=== PATIENT | male | born 1995 | race Caucasian/White ===

== ENCOUNTER 2017-05-11 15:11 | Emergency (ER) | payer OTHER ==
[2017-05-11 15:54] VITALS: BP 109/46
--- NOTE | 2017-05-11 17:18 | UC ---
Complaint Male HPI - HPI Summary HPI Summary: Patient presents to the with request for STD testing. He denies any symptoms. Notes to unprotected exposure x 1 partner with unknown status. He denies any hx of STI's or symptoms or such. Denies fevers, sweats or chills. Otherwise healthy and takes no medications. Denies urinary symptoms. - History of Current Complaint Chief Complaint: UCGU Stated Complaint: STD TESTING Time Seen by Provider: 05/11/17 16:15 Hx Obtained From: Patient Timing: Constant Severity Currently: None Pain Intensity: 0 Pain Scale Used: 0-10 Numeric Associated Signs And Symptoms: Positive: Negative - Risk Factors Testicular Torsion: Negative - Allergies/Home Medications Allergies/Adverse Reactions: Allergies Allergy/AdvReac Type Severity Reaction Status Date / Time No Known Allergies Allergy Verified 05/11/17 15:53 Home Medications: Home Medications NK [No Home Medications Reported] 05/11/17 [History Confirmed 05/11/17] PMH/Surg Hx/FS Hx/Imm Hx Previously Healthy: Yes - Surgical History Surgical History: None - Social History Occupation: Employed Part-time Lives: Dormitory/Roommates Alcohol Use: Occasionally Substance Use Type: None Smoking Status (MU): Never Smoked Tobacco Review of Systems Constitutional: Negative Skin: Negative Respiratory: Negative Cardiovascular: Negative Genitourinary: Negative Motor: Negative Neurovascular: Negative Psychological: Negative Is Patient Immunocompromised?: No All Other Systems Reviewed And Are Negative: Yes Physical Exam Triage Information Reviewed: Yes Appearance: Well-Appearing, Well-Nourished Vital Signs: Initial Vital Signs Temp 98.2 F 05/11/17 15:50 Pulse 70 05/11/17 15:50 Resp 16 05/11/17 15:50 BP 109/46 05/11/17 15:50 Pulse Ox 100 05/11/17 15:50 Vital Signs Reviewed: Yes Eye Exam: Normal Eyes: Positive: Conjunctiva Clear Neck exam: Normal Neck: Positive: Supple, No Lymphadenopathy Respiratory: Positive: Chest non-tender, Lungs clear Musculoskeletal Exam: Normal Musculoskeletal: Positive: Strength Intact Neurological Exam: Normal Neurological: Positive: Alert Psychological: Positive: Age Appropriate Behavior Skin Exam: Normal Complaint Male Course/Dx - Course Course Of Treatment: Patient evaluated for possible STI. Lab work obtained and UA obtained with GC/Chlmydia. Denies any symptoms. Treatment options explained and patient would like to await the results of the testing prior to treatment. - Differential Dx/Diagnosis Differential Diagnosis/HQI/PQRI: Other - STI/ herpes Provider Diagnoses: STD testing Discharge - Discharge Plan Condition: Stable Disposition: HOME Patient Education Materials: Sexually Transmitted Diseases (ED), Safe Sex (ED) Referrals: No Primary Care Phys,NOPCP [Primary Care Provider] - Additional Instructions: Call by if you do not hear from someone on staff.
--- NOTE | 2017-05-12 19:45 | UC ---
Progress - Progress Note Progress Note: CALL PATIENT G/C (-). IF WORSE GO TO ER.
== END 2017-05-11 17:24 | disposition home or self-care (01) ==
LOC: UCEAST 15:11
DX: Z11.3 Encounter for screening for infections with a predominantly sexual mode of transmission (principal)
CPT/HCPCS: 87491; 87591; 99201; G0463